=== PATIENT | female | born 1955 | race Caucasian/White ===

== ENCOUNTER 2016-06-23 17:15 | Observation (INO) | payer BC ==
[2016-06-23] MEDS ORDERED: ASPIRIN 81 MG (BABY) CHEWABLE TABLET ONE (17:25)
[2016-06-23] MEDS ORDERED: ASPIRIN 81 MG (BABY) CHEWABLE TABLET PO ONE (17:31)
[2016-06-23] MEDS ORDERED: Sodium Chloride 0.9% 1,000 ML PRIMARY IV ONE (17:32)
[2016-06-23 17:53] LABS: BASOPHILS # (AUTO) 0.12 10*3/UL; BASOPHILS % (AUTO) 1.2 % (0-1); EOSINOPHILS % (AUTO) 6.4 % (0-8); HEMATOCRIT 42.2 % (37.0-47.0); HEMOGLOBIN 14.1 g/dL (12.0-16.0); IMM GRAN % (AUTO) 0.1 % (0-5); IMM GRAN# (AUTO) 0.01 10*3/UL; LYMPHOCYTES # (AUTO) 2.94 10*3/uL; LYMPHOCYTES % (AUTO) 29.5 % (10-50); MEAN CORPUSCULAR HEMOGLOBIN 29.1 PG (27-31); MEAN CORPUSCULAR HGB CONC 33.4 g/dL (33-37); MEAN PLATELET VOLUME 9.8 FL (7.4-12.2); NEUTROPHILS # (AUTO) 5.46 10*3/UL; NEUTROPHILS % (AUTO) 54.8 % (50-80); RDW COEFFICIENT OF VARIATION 13.8 % (11.5-14.5); RED BLOOD COUNT 4.84 10^6/uL (4.20-5.40); WHITE BLOOD COUNT 9.97 10^3/uL (4.8-10.8)
[2016-06-23 17:57] LABS: PLATELET MORPHOLOGY COMMENT NORMAL MORPHOLOGY (NORM)
[2016-06-23] MEDS ORDERED: NITROGLYCERIN 0.4 MG SL TAB (BOTTLE OF 3) SL ONE ×2 (18:03→18:07)
[2016-06-23 18:06] LABS: BILIRUBIN,TOTAL 0.4 mg/dL (0.3-1.2); CALCIUM 9.8 mg/dL (8.7-10.7); POTASSIUM 4.1 meq/L (3.8-5.2); TOTAL PROTEIN 7.7 g/dL (6.1-8.0)
--- NOTE | 2016-06-23 18:10 | PDOC ---
Chest Pain HPI - General Chief Complaint: Chest Pain Stated Complaint: chest pain Date Seen by Provider: 06/23/16 Time Seen by Provider: 18:04 Source: Patient, Spouse Exam Limitations: POSITIVE: No limitations Treatment Prior to Arrival: REPORTS: None Nurse's Notes Reviewed & Considered: Yes - History of Present Illness Initial Comments: Patient comes in today with chief complaint of chest pain. Patient with a history of waxing and waning chest pain that started as sharp right-sided chest pain with radiation to her right shoulder and right jaw. She had associated shortness of breath. States that her pain is presently a 3/10. She denies nausea vomiting or diarrhea, no cough, she denies headache, no abdominal pain, no dysuria, no rashes. Body Location Affected: REPORTS: Chest Timing: REPORTS: Constant, Getting Worse Duration: >24 hours Severity: Moderate Quality: REPORTS: "Pain", Sharpness, Stabbing, Throbbing Radiation: REPORTS: Jaw (R), Shoulder (R) Associated Symptoms: REPORTS: Shortness of Breath Modifying Factors: improves with: None Reported Similar Symptoms Previously: Yes ([place] 2 year ago) Recently seen/treated/hospitalized: No Any Prior Injuries Related to Current Complaint?: No - Patient Home Medications Home Medications: Home Medications Aspirin [Aspirin Ec] 81 mg PO DAILY #0 tab 04/11/16 Estrogens, Conj Vaginal Cream [Premarin Vaginal Cream] 0.5 gm VAGINAL 3XW #1 tube 04/11/16 Vit A/Vit C/Vit E/Selenium Yst [Antioxidant Formula Tablet] 1 tab PO QD tab Vit C/Vit E/Lutein/Min/[place]-3 [Ocuvite Softgel] 1 tab PO QD cap 04/11/16 - Patient Allergies Allergies/Adverse Reactions: Allergies Allergy/AdvReac Type Severity Reaction Status Date / Time codeine AdvReac GI upset Verified 06/23/16 19:43 Past Medical History - heen HEENT History: Denies History Cardiovascular History: Previous [place], Hyperlipidemia Additional Cardiovasular History: [place] on 06/25/2014 with stent placement x1. Respiratory History: Denies History Gastrointestinal History: Denies History Genitourinary History: Denies History Endocrine History: Denies History Musculoskeletal History: Fibromyalgia Prosthesis or Implant: No Additional Musculoskeletal History: SPINAL STENOSIS Neurological History: Denies History Blood Disorders: Denies History Psychiatric History: Denies History History of Sexually Transmitted Diseases: No Cancer History: Denies History In Past Year Been Physically Harmed or Verbally Threatened: No History of MDRO: No History of Other Communicable Diseases: No Tobacco Use: Former Smoker Alcohol Use: None Substance Use Type: None Previous Surgical History: Yes Type / Date of Surgery: HYSTERECTOMY 1980 Significant Family History: No pertinent family hx ROS - Limitations ROS Limitations: No Limitations Constitution: REPORTS: Denies Symptoms Cardiovascular: REPORTS: Chest Pain Respiratory: REPORTS: Denies Resp Symptoms Neurological: REPORTS: Denies Neuro Symptoms Gastrointestinal: REPORTS: Denies GI Symptoms Endocrine: REPORTS: Denies Symptoms Musculoskeletal: REPORTS: Denies MS Symptoms Genitourinary: REPORTS: Denies Symptoms Eyes: REPORTS: Denies Symptoms ENT: REPORTS: Denies Symptoms Skin: REPORTS: Denies Skin Symptoms Lympathic: REPORTS: Denies Lympathic Symptoms Immunologic: POSITIVE: Denies Symptoms Psychiatric: POSITIVE: Denies Psych Symptoms Chest Pain PE - General Appearance General Appearance: REPORTS: Alert, Cooperative, No Acute Distress, No Evidence of Trauma - HEENT HEENT: POSITIVE: Head Inspection Nml, Eyes Inspection Nml, Ears Inspection Nml, Nose Inspection Nml, PERRL, EOMI - Neck Neck: REPORTS: Normal Inspection - Respiratory Respiratory: REPORTS: No Respiratory Distress, Breath Sounds Normal, Chest Non- Tender - Cardiovascular Cardiovascular: REPORTS: Regular Rate and Rhythm, Heart Sounds Normal - Abdomen Abdomen: Soft: (All Quadrants), Normal Bowel Sounds: (All Quadrants), Denies Tenderness: (All Quadrants) - Skin Skin: REPORTS: Intact, Normal For Race, Warm, Dry, No Rash - Extremities Extremity: Non-Tender: (All Extremities), Normal ROM: (All Extremities), Normal Inspection: (All Extremities) - Neurological / Psychological Neurological: POSITIVE: Affect Apporpriate, Oriented X3 Chest Pain Progress - Results Reviewed by me Xrays/CTs/US Reviewed by me: Yes Discussed with Radiologist: Yes Lab Results Reviewed: Yes Lab Results:: Laboratory Results 06/23/16 06/23/16 Range/Units 17:42 18:07 WBC 9.97 (4.8-10.8) 10^3/uL RBC 4.84 (4.20-5.40) 10^6/uL Hgb 14.1 (12.0-16.0) g/dL Hct 42.2 (37.0-47.0) % MCV 87.2 (81-99) FL MCH 29.1 (27-31) PG MCHC 33.4 (33-37) g/dL RDW Std Deviation 43.3 (39-50) fL RDW Coeff of [place] 13.8 (11.5-14.5) % Plt Count 299 (140-350) 10*3/uL MPV 9.8 (7.4-12.2) FL Immature Gran % (Auto) 0.1 (0-5) % Neut % (Auto) 54.8 (50-80) % Lymph % (Auto) 29.5 (10-50) % [place] % (Auto) 8.0 (5-15) % Eos % (Auto) 6.4 (0-8) % Baso % (Auto) 1.2 H (0-1) % Immature Gran # (Auto) 0.01 10*3/UL Neut # (Auto) 5.46 10*3/UL Lymph # (Auto) 2.94 10*3/uL [place] # (Auto) 0.80 (0.3-0.8) 10*3/UL Eos # (Auto) 0.64 10*3/UL Baso # (Auto) 0.12 10*3/UL WBC Morphology Comment Normal morphology (NORM) Plt Morphology Comment Normal morphology (NORM) RBC Morph Comment Normal morphology (NORM) D-Dimer 0.39 (0.00-0.59) mg/L Sodium 146 H (135-145) meq/L Potassium 4.1 (3.8-5.2) meq/L Chloride 109 (98-112) meq/L Carbon Dioxide 24 (23-33) meq/L Anion Gap 13 (5-20) BUN 21 (7-22) mg/dL Creatinine 1.0 (0.50-1.20) mg/dL Estimated GFR 56 (>60 ml/min/1.73m(2)) BUN/Creatinine Ratio 21.00 H (6-20) Glucose 105 (78-110) mg/dL Calculated Osmolality 304.0 H (267-292) mOsm/kg Calcium 9.8 (8.7-10.7) mg/dL Magnesium 2.2 (1.6-2.4) mg/dL Total Bilirubin 0.4 (0.3-1.2) mg/dL AST 30 (8-39) IU/L ALT 32 (9-52) IU/L Alkaline Phosphatase 83 (38-126) IU/L Troponin I < 0.012 (< 0.040) ng/mL Total Protein 7.7 (6.1-8.0) g/dL Albumin 4.6 (3.5-4.8) g/dL Globulin 3.1 (2.50-4.10) g/dL Albumin/Globulin Ratio 1.40 (1.3-2.0) mg/g - Patient's Progress Pain Medication Addressed: POSITIVE: Yes Re-Examine Time: 19:56 Status: POSITIVE: Improved MDM / ED Course: Patient was evaluated in the emergency department, an IV is it, and blood drawn and sent to the lab for studies and radiographic studies obtained as well as EKG. She received sublingual nitroglycerin which did result in improvement of her pain Laboratory findings: Unremarkable. Troponin normal. D-dimer normal. EKG showing tachycardia with a sinus rhythm. Assessment: Chest pain with coronary risk factors and previous IA. Plan: Admission to rule out myocardial infarction. Quality Measure Initiative: CP/AMI: POSITIVE: EKG - Consult Consult (If Yes, Name of Consulting MD & Time Called): Yes (Dr. Harper 19:50) Consulting MD will see pt:: POSITIVE: [facility] Admit Counseled: POSITIVE: Patient, Family, RE: Lab Results, RE: Radiology Results, RE : DX Patient Care Time - Estimated PCT Patient Care Time (In Minutes): 30 Vital Signs - Recent Vital Signs Vital Signs: Vital Signs (Last 8 hours) Temp Pulse Resp BP Pulse Ox 06/23/16 17:23 96.4 F L 101 H 18 153/93 94 - VS Reviewed Vital Signs Reviewed: Yes Discharge Clinical Impression: Chest pain Discharge Disposition: Admit to Observation Condition: Stable Patient Instructions Given at Discharge: Chest Pain (ED)
[2016-06-23] MEDS ORDERED: NITROGLYCERIN 0.4 MG SL TAB (BOTTLE OF 3) SL PRN (20:22)
[2016-06-23] MEDS ORDERED: NORMAL SALINE 10 ML SYRINGE FLUSH IVP PRN (20:22)
[2016-06-23] MEDS ORDERED: MORPHINE SULFATE 2 MG/1 ML IV PRN (20:22)
--- NOTE | 2016-06-23 20:50 | EKG ---
[address] [place] [address] Measurements Intervals [place] Rate: 100 P: 60 RI: 150 QRS: 39 QRSD: 88 T: 57 QT: 342 QTc: 399 Interpretive Statements SINUS TACHYCARDIA POSSIBLE LEFT ATRIAL ENLARGEMENT [-0.1mV P WAVE IN V1/V2] ABNORMAL RHYTHM ECG Compared to ECG 08/08/2014 19:29:37 Sinus rhythm no longer present ST (T wave) deviation no longer present Electronically Signed On 06-25-16 17:14:05 [facility] by Jonathan Pacheco [id number]
[2016-06-23 20:53] LABS: CARDIAC CK 56 IU/L (30-135)
[2016-06-23 21:07] LABS: TROPONIN I < 0.012 ng/mL (< 0.040)
[2016-06-23] MEDS: HEPARIN 5000 UNIT/1 ML SUBCUT SCH (21:48)
[2016-06-24] MEDS: HEPARIN 5000 UNIT/1 ML SUBCUT SCH ×3 (05:00→21:28)
[2016-06-24 06:00] LABS: ASPARTATE AMINO TRANSFERASE 27 IU/L (8-39); BILIRUBIN,TOTAL 0.5 mg/dL (0.3-1.2); BLOOD UREA NITROGEN 14 mg/dL (7-22); CALCIUM 8.6 mg/dL (8.7-10.7); CHLORIDE 115 meq/L (98-112); CREATININE 0.8 mg/dL (0.50-1.20); EST GLOMERULAR FILTRATION > 60 (>60 ml/min/1.73m(2)); GLUCOSE 91 mg/dL (78-110); POTASSIUM 4.1 meq/L (3.8-5.2); SODIUM 145 meq/L (135-145); TOTAL PROTEIN 6.1 g/dL (6.1-8.0)
[2016-06-24] MEDS: ASPIRIN EC 81 MG TABLET PO SCH (08:49)
[2016-06-24] MEDS: Pantoprazole Inj 40 MG in Normal Saline Flush 10 ML IVP SCH (08:49)
--- NOTE | 2016-06-24 11:17 | PDOC ---
History and Physical - History of Present Illness History of Present Illness: This very nice 61-year-old female with the past medical history of previous [place] 2 years ago apparently they were not able to put in a stent over the last 2 months she has been feeling shortness of breath during her walks and over the last 2 days or shortness of breath that was a little worse radiating down her right arm was seen in the ER where things seem to be resolved and was admitted for rule out. She was scheduled to have a stress test done next week in [place] but since she is admitted here we will rule her out with the Lexiscan here today and tomorrow patient is very happy to have it done here in the week earlier so she does not have to travel. Past Medical History Medical History: Previous [place] Tobacco Use: Former Smoker Substance Use Type: None Alcohol Use: None Medication / Allergies Home Medications: Home Medications Medication Instructions Recorded Confirmed Type Aspirin [Aspirin Ec] 81 mg PO DAILY #0 tab 04/11/16 06/23/16 History Estrogens, Conj Vaginal Cream 0.5 gm VAGINAL 3XW #1 tube 04/11/16 06/23/16 Clinic [Premarin Vaginal Cream] Vit A/Vit C/Vit E/Selenium Yst 1 tab PO QD tab 04/11/16 06/23/16 History [Antioxidant Formula Tablet] Vit C/Vit E/Lutein/Min/[place]-3 1 tab PO QD cap 04/11/16 06/23/16 History [Ocuvite Softgel] Allergies/Adverse Reactions: Allergies Allergy/AdvReac Type Severity Reaction Status Date / Time codeine AdvReac GI upset Verified 06/23/16 19:43 Review of Systems - Review of Systems All Systems: Reviewed & No Additional Complaints Except as Stated - Respiratory Respiratory: DENIES: Negative System Review, Cough, Sputum, Dyspnea At Rest, Dyspnea with Exertion, Pleuritic Pain, Hemoptysis, Wheezing, Other, See HPI - Cardiovascular Cardiovascular: REPORTS: Chest Pain. DENIES: Syncope, Palpitations, Orthopnea, Paroxysmal Nocturnal Dyspnea - Gastrointestinal Gastrointestinal / Abdominal: DENIES: Negative System Review, Nausea, Vomiting, Diarrhea, Constipation, Abdominal Pain, Bloody Stool, Poor Appetite, Heartburn, Regurgitation, Bloating, Lactose Intolerance, Melena, Bright Red Blood Per Rectum, Other, See HPI - Neurological Neurologic: DENIES: Negative System Review, Headache, Numbness/Paresthesia, Tremors, Weakness, Seizures, Head Trauma, LOC, Dizziness, Confusion, Memory Loss , Difficulty Walking, Incoordination, Other, See HPI Exam - Vitals Vital Signs: Vital Signs Temperature 97.1 F Temperature Source Temporal Artery Scan Pulse Rate [Pulse Oximeter] 73 Pulse Rate 78 Respiratory Rate 20 Blood Pressure [Left Arm] 121/74 Blood Pressure 125/76 Pulse Ox 94 Oxygen Delivery Method Room Air Height 5 ft 1 in Weight 61.416 kg - General General Appearance: POSITIVE: No Acute Distress, Cooperative - Neck Neck Exam: POSITIVE: Normal Inspection - Respiratory Respiratory Exam: POSITIVE: Clear to Auscultation - Bilaterally, Breathing Non Labored - Cardiovascular Cardiovascular Exam: POSITIVE: RRR, No Murmur, No Clicks - GI/Abdominal GI/Abdominal Exam: POSITIVE: Normal Bowel Sounds, Non Tender, Non Distended, Soft - Extremities Extremities Exam: POSITIVE: Normal Inspection, No Clubbing Present, No Edema Present - Neurological Neurological Exam: POSITIVE: Alert, Oriented x 3, CN II-XII Intact Results - Labs CBC and BMP: 06/23/16 17:42 06/24/16 05:30 Labs - Last 24 Hours: Laboratory Results 06/23/16 06/24/16 06/24/16 Range/Units 20:36 00:00 05:30 D-Dimer 0.39 (0.00-0.59) mg/L Sodium 145 (135-145) meq/L Potassium 4.1 (3.8-5.2) meq/L Chloride 115 H (98-112) meq/L Carbon Dioxide 20 L (23-33) meq/L Anion Gap 10 (5-20) BUN 14 (7-22) mg/dL Creatinine 0.8 (0.50-1.20) mg/dL Estimated GFR > 60 (>60 ml/min/1.73m(2)) BUN/Creatinine Ratio 17.50 (6-20) Glucose 91 (78-110) mg/dL Calculated Osmolality 300.0 H (267-292) mOsm/kg Calcium 8.6 L (8.7-10.7) mg/dL Total Bilirubin 0.5 (0.3-1.2) mg/dL AST 27 (8-39) IU/L ALT 34 (9-52) IU/L Alkaline Phosphatase 73 (38-126) IU/L Total Creatine Kinase 56 (30-135) IU/L Troponin I < 0.012 < 0.012 < 0.012 (< 0.040) ng/mL Total Protein 6.1 (6.1-8.0) g/dL Albumin 3.5 (3.5-4.8) g/dL Globulin 2.6 (2.50-4.10) g/dL Albumin/Globulin Ratio 1.30 (1.3-2.0) mg/g Assessment and Plan - Patient Problems (1) Chest pain Current Visit: Yes Status: Acute - Assessment / Plan Additional Assessment/Plan Details: Chest pain history of coronary artery disease negative troponins we will order a Lexiscan stress test today patient in agreement
--- NOTE | 2016-06-24 15:48 | DI ---
AP CHEST X-RAY, 06/23/2016 6:02 PM : Clinical History: Chest pain. Previous Exam: 08/08/2014. There is no acute soft tissue or bony abnormality. Heart size is normal. There is no acute infiltrate or effusion. Both apices are hyperlucent and this pattern is suggestive of apical bullae. Mediastina l structures are normal. There are no pulmonary nodules. Readin. There is no acute infiltrate or effusion. 2. This patient may have underlying bullous emphysema.
[2016-06-25] MEDS: HEPARIN 5000 UNIT/1 ML SUBCUT SCH ×2 (04:37→14:07)
[2016-06-25] MEDS: Pantoprazole Inj 40 MG in Normal Saline Flush 10 ML IVP SCH (08:11)
[2016-06-25] MEDS: ASPIRIN EC 81 MG TABLET PO SCH (08:11)
[2016-06-25 11:56] VITALS: RESP 20
--- NOTE | 2016-06-25 12:06 | DCSUMMARY ---
Hospitalization Summary Hospital Course: Final Discharge Diagnosis: Current Visit Problems Problem Status Priority Diagnosed Code Chest pain Acute R07.9 Diagnostic Data, Laboratory Data, and Procedures of Signifigance: Laboratory Results 06/23/16 06/23/16 06/23/16 Range/Units 17:42 18:07 20:36 WBC 9.97 (4.8-10.8) 10^3/uL RBC 4.84 (4.20-5.40) 10^6/uL Hgb 14.1 (12.0-16.0) g/dL Hct 42.2 (37.0-47.0) % MCV 87.2 (81-99) FL MCH 29.1 (27-31) PG MCHC 33.4 (33-37) g/dL RDW Std Deviation 43.3 (39-50) fL RDW Coeff of [place] 13.8 (11.5-14.5) % Plt Count 299 (140-350) 10*3/uL MPV 9.8 (7.4-12.2) FL Immature Gran % (Auto) 0.1 (0-5) % Neut % (Auto) 54.8 (50-80) % Lymph % (Auto) 29.5 (10-50) % [place] % (Auto) 8.0 (5-15) % Eos % (Auto) 6.4 (0-8) % Baso % (Auto) 1.2 H (0-1) % Immature Gran # (Auto) 0.01 10*3/UL Neut # (Auto) 5.46 10*3/UL Lymph # (Auto) 2.94 10*3/uL [place] # (Auto) 0.80 (0.3-0.8) 10*3/UL Eos # (Auto) 0.64 10*3/UL Baso # (Auto) 0.12 10*3/UL WBC Morphology Comment Normal morphology (NORM) Plt Morphology Comment Normal morphology (NORM) RBC Morph Comment Normal morphology (NORM) D-Dimer 0.39 (0.00-0.59) mg/L Sodium 146 H (135-145) meq/L Potassium 4.1 (3.8-5.2) meq/L Chloride 109 (98-112) meq/L Carbon Dioxide 24 (23-33) meq/L Anion Gap 13 (5-20) BUN 21 (7-22) mg/dL Creatinine 1.0 (0.50-1.20) mg/dL Estimated GFR 56 (>60 ml/min/1.73m(2)) BUN/Creatinine Ratio 21.00 H (6-20) Glucose 105 (78-110) mg/dL Calculated Osmolality 304.0 H (267-292) mOsm/kg Calcium 9.8 (8.7-10.7) mg/dL Magnesium 2.2 (1.6-2.4) mg/dL Total Bilirubin 0.4 (0.3-1.2) mg/dL AST 30 (8-39) IU/L ALT 32 (9-52) IU/L Alkaline Phosphatase 83 (38-126) IU/L Total Creatine Kinase 56 (30-135) IU/L Troponin I < 0.012 < 0.012 (< 0.040) ng/mL Total Protein 7.7 (6.1-8.0) g/dL Albumin 4.6 (3.5-4.8) g/dL Globulin 3.1 (2.50-4.10) g/dL Albumin/Globulin Ratio 1.40 (1.3-2.0) mg/g 06/24/16 06/24/16 Range/Units 00:00 05:30 WBC (4.8-10.8) 10^3/uL RBC (4.20-5.40) 10^6/uL Hgb (12.0-16.0) g/dL Hct (37.0-47.0) % MCV (81-99) FL MCH (27-31) PG MCHC (33-37) g/dL RDW Std Deviation (39-50) fL RDW Coeff of [place] (11.5-14.5) % Plt Count (140-350) 10*3/uL MPV (7.4-12.2) FL Immature Gran % (Auto) (0-5) % Neut % (Auto) (50-80) % Lymph % (Auto) (10-50) % [place] % (Auto) (5-15) % Eos % (Auto) (0-8) % Baso % (Auto) (0-1) % Immature Gran # (Auto) 10*3/UL Neut # (Auto) 10*3/UL Lymph # (Auto) 10*3/uL [place] # (Auto) (0.3-0.8) 10*3/UL Eos # (Auto) 10*3/UL Baso # (Auto) 10*3/UL WBC Morphology Comment (NORM) Plt Morphology Comment (NORM) RBC Morph Comment (NORM) D-Dimer 0.39 (0.00-0.59) mg/L Sodium 145 (135-145) meq/L Potassium 4.1 (3.8-5.2) meq/L Chloride 115 H (98-112) meq/L Carbon Dioxide 20 L (23-33) meq/L Anion Gap 10 (5-20) BUN 14 (7-22) mg/dL Creatinine 0.8 (0.50-1.20) mg/dL Estimated GFR > 60 (>60 ml/min/1.73m(2)) BUN/Creatinine Ratio 17.50 (6-20) Glucose 91 (78-110) mg/dL Calculated Osmolality 300.0 H (267-292) mOsm/kg Calcium 8.6 L (8.7-10.7) mg/dL Magnesium (1.6-2.4) mg/dL Total Bilirubin 0.5 (0.3-1.2) mg/dL AST 27 (8-39) IU/L ALT 34 (9-52) IU/L Alkaline Phosphatase 73 (38-126) IU/L Total Creatine Kinase (30-135) IU/L Troponin I < 0.012 < 0.012 (< 0.040) ng/mL Total Protein 6.1 (6.1-8.0) g/dL Albumin 3.5 (3.5-4.8) g/dL Globulin 2.6 (2.50-4.10) g/dL Albumin/Globulin Ratio 1.30 (1.3-2.0) mg/g History and Physical pertinent to Admission: Course of Hospitalization: Is a very nice 61-year-old female with past medical history significant for coronary artery disease and [place] 2 years ago but no stent over the last 2 months she has been having some intermittent chest pain and shortness of breath during her walks over the last 2 days these got worse and was admitted for rule out she did see her buying agent [address] Hobson who recommended she have a Lexiscan stress test which was scheduled for next week since she was admitted here to the hospital we went ahead and did her Lexiscan the second part was done today we'll be awaiting for the results if it is negative patient will be discharged home if positive I will talk to the buying agent on-call [facility] for further instructions she is chest pain-free at this time did well throughout her stress test no other complaints I discussed this with her family members and herself on agreement On the date of discharge, the patient was examined: Gen.: No acute distress, alert, nontoxic Heart: Regular rate and rhythm, no murmurs, clicks, gallops, or rubs Lungs: Clear to auscultation bilaterally, breathing is nonlabored Abdomen/GI: Normal tones on auscultation, soft, nontender, nondistended Musculoskeletal/extremities: No clubbing, cyanosis, or edema Vitals reviewed and are listed below Vital Signs (24 hrs) Temp Pulse Pulse Resp BP Pulse Ox 06/25/16 11:55 98.2 F 95 20 133/74 92 06/25/16 08:32 78 06/25/16 08:14 98.0 F 85 18 111/94 91 06/25/16 07:00 98 06/25/16 04:42 98.2 F 89 18 139/77 92 06/25/16 03:00 78 06/25/16 02:43 94 06/24/16 22:42 77 06/24/16 20:25 98.8 F 79 20 109/54 93 06/24/16 19:00 82 91 06/24/16 16:58 97.8 F 91 20 119/74 93 06/24/16 13:00 98.1 F 90 20 122/67 98 Assessment and Plan: 1. As per discharge assessments above 2. Disposition: Home 3. Condition on discharge, stable and improved. 4. Diet: regular diet 5. Activities: resume normal activities 6. Follow-Up: 1. PCP and cardiology 2. 7. Medications at the Time of Discharge: Home Medications Medication Instructions Recorded Confirmed Type Aspirin [Aspirin EC] 81 mg PO DAILY #0 tab 04/11/16 06/23/16 History Estrogens, Conj Vaginal Cream 0.5 gm VAGINAL 3XW #1 tube 04/11/16 06/23/16 Clinic [Premarin Vaginal Cream] Vit A/Vit C/Vit E/Selenium Yst 1 tab PO QD tab 04/11/16 06/23/16 History [Antioxidant Formula Tablet] Vit C/Vit E/Lutein/Min/[place]-3 1 tab PO QD cap 04/11/16 06/23/16 History [Ocuvite Softgel] 8. Time, care, counseling and coordination of care for this discharge is greater than 30 minutes. Exam - Vitals Vital Signs: Vital Signs Temperature 98.2 F Temperature Source Temporal Artery Scan Pulse Rate [Pulse Oximeter] 95 Pulse Rate 98 Respiratory Rate 20 Blood Pressure [Left Arm] 133/74 Blood Pressure 125/76 Pulse Ox 92 Oxygen Delivery Method Room Air Height 5 ft 1 in Weight 61.235 kg Patient Problems - Patient Problem List (1) Chest pain Current Visit: Yes Status: Acute
--- NOTE | 2016-06-25 12:25 | STRESSTEST ---
Interpretive Statements this is carla al 61 yo female with hx of previoud MD without stents 2 years ago and admitted with SOB and pressure for the last 2 months had also seen policy director couple of weeks ago and they were aware of symptoms >, no acute abnormality seen on stress part will await imaging Electronically Signed On 06-26-16 08:24:22 [facility] by Dimitri Arriaga MD [email or web address]
--- NOTE | 2016-06-25 14:43 | DI ---
HISTORY: Chest pain. TECHNIQUE: On 06/24/16, the patient was given 38.2 mCi of Tc99m Sestamibi intravenously at rest. The ECT study of the heart was obtained 20 minutes post injection. Subsequently, on 06/25/16, the patient received 35.0 mCi of Tc99m Sestamibi intravenously and was give n 0.4 mg/5 ML of Lexiscanintravenously. The ECT study of the heart was then obtained. FINDINGS: The ECT studies were reconstructed in short axis, vertical long axis, and horizontal long axis. There is uniform activity throughout the left ventricular myocardium in all the rest images. Gated images show no significant motion or attenuation artifacts. Normal contraction with no evidence of wall motion abnormality. Stress images show LVEF = 66% Limited CT examination of the chest shows a 4 mm right middle lobe nodule. There is extensive coronar y artery and aortic calcified atheromatous disease. Suggestion of small sliding hiatal hernia. IMPRESSION: 1. Focal anterior and apical perfusion defect on stress images suggestive of ischemia. 2. Normal LVEF = 66% 3. Recommend routine follow up chest CT to further evaluate small 4 mm right middle lobe pulmonary no dule.
[2016-06-25 16:13] VITALS: TEMP 97.8
== END 2016-06-25 16:25 | disposition short-term general hospital (02) ==
LOC: ER 17:15 → INTOOBSV 20:08 → MED/SURG 20:08 → UNDOADMOB 20:08 → UNDODISOB 06-25 16:25
PROVIDERS: ADMIT Internal Medicine; ATTEND Internal Medicine
DX: R07.9 Chest pain, unspecified (principal); I25.2 Old myocardial infarction
CPT/HCPCS: 36415 ×2; 71010; 78452; 80053 ×2; 82550; 83735; 84484 ×2; 85025; 85379 ×2; 93005; 93010; 93016; 93017; 93018; 94761 ×2; 96365 ×2; 96366 ×2; 96374; 96375; 99284 ×2; A9500; J2785; J1644; J3490; J7030

== ENCOUNTER → 2017-01-05 | Outpatient (CLI) | payer BC ==
--- NOTE | 2017-01-05 13:05 | DI ---
CT CHEST W/O CONTRAST,01/05/2017 9:57 AM: Clinical History: Pulmonary nodule Previous Exam: June 23, 2016 single frontal radiograph of the chest Findings: Multiple helically acquired CT images are obtained through the chest without contrast, and demonstrat e clear lungs. The cardiomediastinum is unremarkable except for some coronary artery calcifications. A few peripheral vascular calcifications are seen. There is no infiltrate nor effusion. There are no nodules. Impression: No evidence of pulmonary nodule.
== END ==
LOC: CT 09:52
PROVIDERS: ATTEND Nurse Practitioner Family
DX: R91.1 Solitary pulmonary nodule (principal)
CPT/HCPCS: 71250